=== PATIENT | female | born 1945 | race Caucasian/White ===

== ENCOUNTER 2020-12-23 07:57 | Outpatient (CLI) | payer MEDICARE, OTHER | END 2020-12-23 07:58 | disposition home or self-care (01) | LOC: CSHCT 07:57 | PROVIDERS: ATTEND Internal Medicine Cardiovascular Disease | DX: I48.91 Unspecified atrial fibrillation (principal); J90 Pleural effusion, not elsewhere classified | CPT/HCPCS: 71275 ==